=== PATIENT | male | born 2000 | race Caucasian/White ===

== ENCOUNTER 2023-08-11 12:51 | Emergency (ER) | payer OTHER, SELFPAY ==
[2023-08-11 12:58] VITALS: BP 113/78; PULSE 74; RESP 18; TEMP 36.6; O2SAT 98; BMI 25.1
--- NOTE | 2023-08-11 12:59 | ED_ITS ---
HPI - General Adult General Chief complaint: Urogenital-Male Stated complaint: pain while urinating Time Seen by Provider: 08/11/23 14:15 History of Present Illness HPI narrative: Patient complains of dysuria for several days, denies any discharge, says he is sexually active with 1 partner He denies any nausea or vomiting he denies any testicular pain, denies any fever denies any lesions or sores or rashes, no flank pain no abdominal Related Data Allergies Allergy/AdvReac Type Severity Reaction Status Date / Time No Known Allergies Allergy Verified 08/11/23 13:00 [facility] Past Medical History Source: nursing notes reviewed Social History Social History Advance Directives: No Advance Directives Information Provided: No Physical Exam ED Vital Signs: Vital Signs - 24 hr 08/11/23 12:58 Temperature 98 F Pulse Rate 74 Respiratory Rate 18 Blood Pressure 113/78 Pulse Oximetry 98 Oxygen Delivery Method Room Air BMI result Body Mass Index 25.1 General appearance no distress Neck is supple Respiratory no distress Abdomen soft nontender Genital exam deferred as he says he is examined himself closely and there are no lesions or sores or swelling Skin no rashes Course Course Course Narrative: This is an RME: Additional HPI, ROS, PE not included below will be deferred to primary provider. RME assessment and note performed by: Sulema Barone PA-C This is a [id number]-male, with a hx of internal hemorrhage post cholescysecto my and appendectomy in January 2021, presenting to the ER with complaints of dysuria x 4 days. He is sexually active with one partner. Also requesting HSV testing as partner has a history of herpes. He has no rashes or lesions. Plan: UA, CT/NG testing Genital exam was deferred per patient request and he is reliable and denies any rashes or sores He is treated for possible chlamydia or gonorrhea with Rocephin and doxycycline He understands to inform his partner and to refrain from sex until he and his partner are fully evaluated and treated He is advised to follow with [facility] for further complete STD testing Medical Decision Making Lab Data Labs: Lab Results 08/11/23 Range/Units 14:26 Urine Color Yellow Urine Appearance Clear Urine pH 7.0 (5.0-9.0) Ur Specific Emmons 1.010 (1.005-1.025) Urine Protein Negative (Neg-Trace) mg/dL Urine Glucose (UA) Negative (Negative) mg/dL Urine Ketones Negative (Negative) mg/dL Urine Blood Negative (Negative) Urine Nitrite Negative (Negative) Ur Leukocyte Esterase Negative (Negative) Discharge Plan Discharge Clinical Impression: Dysuria Patient Disposition: Home, Self-Care Additional Instructions: Burning on urination in a young male is almost always gonorrhea or chlamydia which are sexually transmitted disease which is very contagious so we are treating for the likelihood that you have 1 or the other of gonorrhea or chlamydia You got a shot of Rocephin which is a 1 time treatment for gonorrhea and your getting a 1 week prescription for doxycycline which is the treatment for chlamydia Doxycycline can cause nausea in rare cases ,if it does most people if they take it with food or a little after eating food do not get any nausea We will call you for any positive test If you want to be checked more completely for any possible STD you can go to [facility] phone number [phone] A female can have chlamydia or gonorrhea and not know it and have no symptoms and it can damage the reproductive tract so it is very important that she be checked again for possible chlamydia or gonorrhea She can use [facility] to be checked for STD No sex until she has been checked and treated if the clinic deems it necessary, and until all symptoms and complete course of antibiotic or done Your urinalysis checking for urine infection was normal Phone number for [facility] is [phone] Print Language: Burkinan
--- NOTE | 2023-08-11 14:27 | PC.NURSE ---
clean and dirty urine obtained
[2023-08-11 14:34] LABS: Appearance Urine Clear; Color Urine Yellow; Glucose Urine UA Negative (Negative); Leukocyte Esterase Urine Negative (Negative); Nitrite Urine Negative (Negative); Urine Blood Negative (Negative); Urine Ketones Negative (Negative); Urine Protein Negative (Neg-Trace)
[2023-08-11] MEDS: cefTRIAXone sodium 250 MG, Lidocaine HCl 1 % MPF 0.9 ML IM (15:16)
[2023-08-11] MEDS: Doxycycline Monohydrate 100 MG CAPSULE PO (15:17)
--- NOTE | 2023-08-11 15:20 | PC.NURSE ---
pt medicated per order and will discharge home
[2023-08-11 15:21] VITALS: BP 115/72; PULSE 77; RESP 18; TEMP 36.8; O2SAT 98
[2023-08-11 16:18] LABS: CT PCR NOT DETECTED (Not Detect.); NG PCR NOT DETECTED (Not Detect.)
== END 2023-08-11 15:22 | disposition home or self-care (01) ==
PROVIDERS: Physician Assistant Medical; Emergency Provider Emergency Medicine
DX: R30.0 Dysuria (principal)
CPT/HCPCS: 0353U; 81003; 96372; 99282; 99284; J0696